=== PATIENT | female | born 1995 | race African-American/Black ===

== ENCOUNTER 2022-01-12 13:25 | Emergency (ER) | payer MEDICARE ==
[~2022-01-12] VITALS: Ht 162.6 cm; Wt 52.0 kg
[2022-01-12 13:26] VITALS: BP 101/60
== END 2022-01-12 14:09 | disposition left against medical advice (07) ==
LOC: ER 13:25
DX: F91.9 Conduct disorder, unspecified (principal)
CPT/HCPCS: 99283